=== PATIENT | male | born 1995 | race Caucasian/White ===

== ENCOUNTER 2019-03-23 13:09 | Emergency (ER) | payer OTHER ==
[2019-03-23 13:53] VITALS: BP 119/67
[2019-03-23] MEDS ORDERED: LIDOCAINE 1%/EPINEPHRINE INJ 20 ML VIAL INJ ONE (13:53)
[2019-03-23] MEDS ORDERED: GENTAMICIN SULFATE INJ 80 MG/2 ML VIAL IM ONE (13:56)
[2019-03-23] MEDS ORDERED: KETOROLAC TROMETHAMINE 60 MG/2 ML SDV IM ONE (13:57)
--- NOTE | 2019-03-23 14:05 | ER Document Report ---
HPI - HPI Time Seen by Provider: 03/23/19 13:48 Pain Level: 4 Context: 24-year-old male presents the emergency department after stepping on a nail this morning his right shoe. He was at work and it went through his rubber soled and penetrated his skin. The nail stuck in the skin did patient complains of pain and tenderness, no bleeding. Tetanus is up-to-date. - DERM Skin Color: Normal Past Medical History - Social History Smoking Status: Never Smoker Chew tobacco use (# tins/day): No Drug Abuse: None Family History: None Patient has suicidal ideation: No Patient has homicidal ideation: No Vertical Provider Document - CONSTITUTIONAL Notes: PHYSICAL EXAMINATION: Reviewed vital signs and charting by RN GENERAL: Alert, interacts well. No acute distress. HEAD: Normocephalic, atraumatic. EYES: Pupils equal and round. Extraocular movements intact. ENT: Oral mucosa moist, tongue midline. NECK: Full range of motion. Trachea midline. EXTREMITIES: Moves all 4 extremities spontaneously. No edema, No cyanosis. 1 mm puncture wound on the dorsum of the right foot, no erythema or purulent discharge PSYCH: Normal affect, normal mood. SKIN: Warm, dry, normal turgor. No rashes or lesions noted. Course - Re-evaluation Re-evalutation: 03/23/19 14:01 Well-appearing in no acute distress, patient received Toradol 60 mg IM once and I cored the wound after local anesthesia with lidocaine 1% with epinephrine. Patient received gentamicin 2.5 mg/kg IM once for antipseudomonal coverage and I will place him on Keflex 500 mg every 6 hours for 5 days for MSSA coverage. Patient tolerated the procedure well he is stable for discharge. 03/23/19 15:34 X-ray completed and read by me personally. There is no evidence of foreign body. I am also going to give the patient ciprofloxacin 500 mg twice daily for 5 days if he can afford it I would prefer him to take that instead of the Keflex. I explained to him that if he fills the Cipro to throw away the Keflex prescription. - Vital Signs Vital signs: Temp Pulse Resp BP Pulse Ox 98.0 F 75 16 119/67 98 03/23/19 13:49 03/23/19 13:49 03/23/19 13:49 03/23/19 13:49 03/23/19 13:49 Discharge - Discharge Clinical Impression: Puncture wound of foot Qualifiers: Encounter type: initial encounter Laterality: right Qualified Code(s): S91.331A - Puncture wound without foreign body, right foot, initial encounter Condition: Good Disposition: HOME, SELF-CARE Additional Instructions: You are seen in the emergency department for a puncture wound to your right foot. We numbed the bottom of your foot and cored out the wound to ensure that there is no retained foreign bodies. Also, you received an antibiotic shot and will be sent home with 5 days of antibiotics. Please take them until they are gone. Please return to the emergency department if started vomiting fevers, worsening pain in your foot, swelling/redness/purulent discharge from the wound, or you have any other concerning symptoms. Prescriptions: Cephalexin Monohydrate [Keflex 500 mg Capsule] 500 mg PO Q6H 5 Days capsule Forms: Return to Work
--- NOTE | 2019-03-23 15:44 | RADIOLOGY REPORT (SQ) ---
EXAM DESCRIPTION: FOOT RIGHT 2 VIEWS COMPLETED DATE/TIME: 03/23/2019 3:32 pm REASON FOR STUDY: assess for foreign body COMPARISON: None. NUMBER OF VIEWS: Two views. TECHNIQUE: AP and lateral radiographic images acquired of the right foot. LIMITATIONS: None. FINDINGS: MINERALIZATION: Normal. BONES: No acute fracture or dislocation. No worrisome bone lesions. JOINTS: No effusions. SOFT TISSUES: Mild soft tissue swelling on the plantar forefoot. No radiopaque foreign body. OTHER: No other significant finding. IMPRESSION: No acute bony abnormality. No radiopaque foreign body. TECHNICAL DOCUMENTATION: JOB ID: [id number] [employer]- All Rights Reserved Reading location - IP/workstation name: [email or web address]
== END 2019-03-23 16:10 | disposition home or self-care (01) ==
LOC: ER 13:09
DX: S91.331A Puncture wound without foreign body, right foot, initial encounter (principal); M79.671 Pain in right foot; W45.0XXA Nail entering through skin, initial encounter
CPT/HCPCS: 99283; 96372; 73620; J1885; J1580; J3490